=== PATIENT | male | born 1955 | race Caucasian/White ===

== ENCOUNTER 2018-05-01 08:20 | Observation (INO) | payer OTHER ==
[~2018-05-01] VITALS: Ht 167.6 cm; Wt 103.9 kg
--- NOTE | ~2018-05-01 | P ---
[facility] [place] [place] [address] PROCEDURE REPORT Name: MARIA T GOTTI Room #: 216-P [facility] M.RSera#: [id number] Admission: 05/01/18 Attend Phys: Monroe Khan MD Discharge: Date of : 51 Report #: [id number] THIS REPORT FOR: //name// CC: Monroe Phipps PROCEDURE: Dual-chamber ICD implantation. PREOPERATIVE DIAGNOSIS: Ischemic cardiomyopathy. POSTOPERATIVE DIAGNOSIS: Ischemic cardiomyopathy. HISTORY OF PRESENT ILLNESS: The patient is a 63-year-old male with a history of coronary artery disease, status post GA and history of an ischemic cardiomyopathy, EF of less than 35%, who has been on optimal medical therapy. He has [place] [employer] functional class 2-3 heart failure symptoms and is here for ICD for primary prevention of sudden cardiac . He is currently in atrial fibrillation, but will undergo a cardioversion in the near future and therefore an atrial lead was placed as well to monitor for AFib. ANESTHESIA: The patient underwent initial MAC anesthesia, but prior to initiation of the procedure due to some issues with sleep apnea and low saturations he was converted to a general. DESCRIPTION OF PROCEDURE: The patient underwent informed consent. We discussed the details of the procedure including the risks, which include but not limited to bleeding, infection, vascular damage, cardiac perforation and pneumothorax. He understood these risks and is willing to proceed. As such, he was brought to the EP laboratory in a fasting and unsedated state, prepped and draped in the sterile fashion, underwent venogram showing patency of the left axillary vein and received IV antibiotics prior to initiation of the procedure. Prior to me starting, the patient's sats were somewhat low, so the anesthesiologist converted him to general. Once his oxygenation improved, I started the procedure. I injected lidocaine below the level of the left clavicle, incision was made, a pocket was created over the prepectoral fascia. As we were making the pocket, he did become somewhat bradycardic and hypotensive, which responded to some vasopressors. Next, I obtained access to the left axillary vein x 2 placing sheaths using the modified Seldinger technique. Next, the lead was positioned in the right ventricular apex and another lead was positioned in the right atrial appendage both with adequate lead characteristics. The leads were sutured to the prepectoral fascia. Of note, the patient did have quite a large heart, but the 58 cm lead appeared to be sufficient. The leads were sutured to the prepectoral fascia and connected to the device. The pocket was irrigated with vancomycin. Next, the pocket was closed with three layers, 2-0 for the deep layer, 3-0 for the middle layer and 4-0 for the subcuticular. Surgical [facility] [address] [place] [address] PROCEDURE REPORT Name: MARIA T GOTTI Room #: 216-P [facility] M.R.#: [id number] Admission: 05/01/18 Attend Phys: Monroe Khan MD Discharge: Date of : 51 Report #: [id number] glue was placed to the outer skin layer. The patient awoke neurologically and hemodynamically intact with no complications and no significant bleeding. Implanted device was a [employer] model #[id number], serial #[id number]. Atrial lead was a [employer] model #BKQ1325O, 52 cm, serial #[id number]. This lead demonstrated a P-wave of 0.4 millivolts and pacing impedance of 400 ohms. A threshold could not be obtained due to the atrial fibrillation. The RV lead was a [employer] model #7120Q, 58 cm, serial #[id number] with R-wave of 6.2 millivolts, pacing impedance of 400 ohms with a pacing threshold of 0.75 volts at 0.5 milliseconds. The device was programmed to DDD 60-130 mode. The VT zone was set from 180-220 beats per minute with three rounds of burst followed by three rounds of ramp followed by max output shocks. The VF zone was set at greater than 220 beats per minute with ATP while charging followed by max output shocks. CONCLUSIONS: 1. Successful ICD implantation. 2. Satisfactory atrial and ventricular lead characteristics. By: [id number] Monroe Khan MD /nt
[~2018-05-01 08:20] MED LIST: ALLERGY10 M1 PO; AMARYL4 MG PO; AMLODIPINE BESY10 MG PO; ASPIR 8181 MG PO; ATORVASTATIN CA40 MG PO; AZITHROMYCIN 2250 MG PO; BRILINTA90 MG PO; CEFUROXIME500 MG PO; COREG CR40 MG PO; COZAAR100 MG PO; DILTIAZEM 24HR180 M2; DUONEB 2.5-0.5 M3 ML INH; EFFIENT10 MG PO; ENTRESTO 97 MG1 EACH; FLONASE 0.05%50 MCG NASAL; HYTRIN 5 M5 MG/1 CAP PO; IMDUR 30 MG TAB30 M1 PO; ISOSORBIDE DINI30 MG PO; KLOR-CON 1010 MEQ PO; KLOR-CON 88 ME1 PO; LASIX 40 MG TAB40 M2 PO; LIALDA1.2 GM PO; MERCAPTOPURINE50 MG PO; METFORMIN HCL500 MG PO; MUCINEX TA600 MG/TA2 PO; NASONEX17 GM NASAL; NEBULIZER MISCELL; NITROGLYCERIN0.4 MG SUBLING; OMEPRAZOLE20 M2 PO; PLAVIX 75 MG TA75 M1 PO; PREDNISONE 20 M20 MG PO; PREDNISONE 5 MG5 M1 PO; ZPAK PO
[2018-05-01] MEDS ORDERED: ISOSORBIDE DINI30 MG PO (08:45)
[2018-05-01] MEDS ORDERED: ENTRESTO 97 MG1 EACH PO (08:47)
[2018-05-01] MEDS ORDERED: NITROGLYCERIN0.4 MG SUBLING (08:55)
[2018-05-01] MEDS ORDERED: POTASSIUM20 PO (08:56)
[2018-05-01] MEDS ORDERED: DEMADEX20 MG PO (08:57)
[2018-05-01] MEDS ORDERED: IRON325 PO (08:58)
[2018-05-01] MEDS ORDERED: D3 DOTS2000 UNIT PO (08:59)
[2018-05-01 09:01] LABS: ABSOLUTE NEUTROPHILS 4.5 thou/uL (1.4-8.2); BASOPHILS 1.5 % (0.0-2.0); EOSINOPHILS 4.2 % (0.0-3.0); HEMATOCRIT 32.5 % (42.0-52.0); HEMOGLOBIN 10.7 gm/dL (14.0-18.0); LYMPHOCYTES 10.3 % (24.0-44.0); MCH 26.4 pg (26.0-34.0); MONOCYTES 6.9 % (1.0-8.0); PLATELET COUNT 291 thou/uL (150-400); POLYS 77.1 % (36.0-66.0); RBC 4.06 mil/uL (4.50-6.00); WBC 5.9 thou/uL (4.0-11.0)
[2018-05-01 09:12] VITALS: BP 132/83
[2018-05-01 09:12] LABS: CALCIUM 8.8 mg/dL (8.5-10.1); CREATININE 1.8 mg/dL (0.7-1.3); POTASSIUM 3.2 mmol/L (3.5-5.1)
[2018-05-01 09:18] LABS: TOTAL BILIRUBIN 0.7 mg/dL (<0.1-1.0)
[2018-05-01 09:23] LABS: APTT 30.8 Seconds (24.5-32.8); INR 1.2
[2018-05-01 19:45] VITALS: BP 135/81
[2018-05-02 03:04] VITALS: BP 138/77
[2018-05-02 07:34] LABS: CALCIUM 8.7 mg/dL (8.5-10.1); CREATININE 1.7 mg/dL (0.7-1.3); POTASSIUM 3.5 mmol/L (3.5-5.1)
[2018-05-02 07:50] VITALS: BP 137/96
[2018-05-02 10:05] LABS: URINE BILIRUBIN NEGATIVE (Negative); URINE BLOOD NEGATIVE (Negative); URINE CLARITY CLEAR; URINE COLOR YELLOW; URINE GLUCOSE-RANDOM* NEGATIVE (Negative); URINE KETONES NEGATIVE (Negative); URINE LEUKOCYTES NEGATIVE (Negative); URINE NITRITE NEGATIVE (Negative); URINE PROTEIN (DIPSTICK) 1+ (Negative); URINE UROBILINOGEN 0.2 E.U./dl (0.2-1.0)
[2018-05-02 10:22] LABS: HYALINE CASTS 0-3 Few /LPF (None Seen); SQUAMOUS 0-3 Few /LPF (0-3); URINE RBC 3-10 Few /HPF (0-2); URINE WBC 0-5 Rare /HPF (0-5)
[2018-05-02 10:23] LABS: BACTERIA 1-9 Few /HPF (None Seen); CRYSTALS None Seen /LPF (None Seen)
[2018-05-02 11:18] VITALS: BP 137/96
[2018-05-02 11:55] VITALS: BP 129/84
== END 2018-05-02 13:00 | disposition home or self-care (01) ==
LOC: CATH 08:20 → 2N 15:19 → ENTRNSPT 05-02 12:44 → EDTRNSPTSTS 05-02 12:54 → 2N 05-02 13:00
PROVIDERS: Internal Medicine Cardiovascular Disease
DX: I25.5 Ischemic cardiomyopathy (principal); I48.1 Persistent atrial fibrillation; I25.10 Atherosclerotic heart disease of native coronary artery without angina pectoris; I11.0 Hypertensive heart disease with heart failure; I50.22 Chronic systolic (congestive) heart failure; G47.33 Obstructive sleep apnea (adult) (pediatric); E78.5 Hyperlipidemia, unspecified; E11.9 Type 2 diabetes mellitus without complications; I25.2 Old myocardial infarction; Z95.5 Presence of coronary angioplasty implant and graft; Z82.49 Family history of ischemic heart disease and other diseases of the circulatory system

== ENCOUNTER → 2018-07-05 | Outpatient (CLI) | payer OTHER ==
[~2018-07-05] VITALS: Ht 167.6 cm; Wt 103.0 kg
[~2018-07-05] MED LIST changes: +D3 DOTS2000 UNIT PO; +DEMADEX20 MG PO; +ELIQUIS2.5 MG PO; +ENTRESTO 97 MG1 EACH PO; +IRON325 PO; +PACERONE 200 M200 M1 PO; +POTASSIUM20 PO
[2018-07-05 11:13] VITALS: BP 135/86
[2018-07-05 11:24] LABS: ABSOLUTE NEUTROPHILS 4.5 thou/uL (1.4-8.2); BASOPHILS 1.2 % (0.0-2.0); HEMATOCRIT 33.5 % (42.0-52.0); LYMPHOCYTES 10.3 % (24.0-44.0); MCH 26.6 pg (26.0-34.0); MCHC 32.8 g/dL (28.0-37.0); MCV 81.2 fL (80.0-100.0); PLATELET COUNT 227 thou/uL (150-400); POLYS 77.5 % (36.0-66.0); RBC 4.12 mil/uL (4.50-6.00); RDW 21.6 % (10.5-14.5); WBC 5.8 thou/uL (4.0-11.0)
[2018-07-05 11:35] LABS: CALCIUM 9.1 mg/dL (8.5-10.1); CREATININE 1.6 mg/dL (0.7-1.3); POTASSIUM 3.2 mmol/L (3.5-5.1)
[2018-07-05 11:41] LABS: ALBUMIN 3.3 g/dL (3.4-5.0); TOTAL BILIRUBIN 1.6 mg/dL (<0.1-1.0); TOTAL PROTEIN 7.3 g/dL (6.4-8.2)
[2018-07-05 11:46] LABS: APTT 33.6 Seconds (24.5-32.8); INR 1.4; PROTIME 13.3 Seconds (9.3-11.4)
== END | disposition home or self-care (01) ==
LOC: CATH 08:07
PROVIDERS: Internal Medicine Cardiovascular Disease
DX: I48.91 Unspecified atrial fibrillation (principal); I11.0 Hypertensive heart disease with heart failure; I50.9 Heart failure, unspecified; I25.2 Old myocardial infarction; K21.9 Gastro-esophageal reflux disease without esophagitis; E78.5 Hyperlipidemia, unspecified; M10.9 Gout, unspecified; E66.09 Other obesity due to excess calories; Z98.890 Other specified postprocedural states; Z82.49 Family history of ischemic heart disease and other diseases of the circulatory system; Z79.01 Long term (current) use of anticoagulants; Z95.5 Presence of coronary angioplasty implant and graft; Z79.899 Other long term (current) drug therapy; Z88.8 Allergy status to other drugs, medicaments and biological substances
CPT/HCPCS: 62110; 62900

== ENCOUNTER → 2018-08-23 | Outpatient (CLI) | payer OTHER ==
[~2018-08-23] VITALS: Ht 167.6 cm; Wt 104.3 kg
--- NOTE | ~2018-08-23 | P ---
[facility] [place] [address] [place] [address] PROCEDURE REPORT Name: MARIA T GOTTI Room #: REG KIKA Chloe#: [id number] Admission: 08/23/18 Attend Phys: Monroe Khan MD Discharge: Date of : 51 Report #: [id number] THIS REPORT FOR: //name// CC: Monroe Dudley DATE OF SERVICE: 08/23/2018 PROCEDURE: Cardioversion. PREOPERATIVE DIAGNOSIS: Atrial fibrillation. POSTOPERATIVE DIAGNOSIS: Atrial fibrillation. DESCRIPTION OF PROCEDURE: The patient underwent informed consent. He was then sedated by the Anesthesiology service. Once sedated, he underwent a synchronized 200-joule cardioversion with cheondoism of sinus rhythm. There were no procedural complications. CONCLUSIONS: Successful direct current cardioversion with cheondoism of sinus rhythm. <ELECTRONICALLY SIGNED> By: Monroe Khan MD 08/26/18 1145 [id number] [id number] Monroe Khan MD /nt
--- NOTE | ~2018-08-23 | EKG ---
[address] [address] ELECTROCARDIOGRAM REPORT Name: MARIA T GOTTI [id number] Admission: 08/23/18 Attend Phys: Monroe Khan MD Discharge: Date of : 51 Report #: [id number] THIS REPORT FOR: //name// [facility] [place] Test Date: 2018-08-23 Test Time: 13:13:44 Pat Name: MARIA T GOTTI Department: Room: Gender: [place]ake Drier: Jyoti LAGUNA : 1955 Requested By: Monroe Khan Order Number: [id number] MD: Monroe Khan Measurements Intervals [place] Rate: 64 P: 38 MO: 246 QRS: -10 QRSD: 127 T: 58 QT: 468 QTc: 483 Interpretive Statements Sinus rhythm Prolonged MO interval Nonspecific intraventricular conduction delay No previous ECG available for comparison Electronically Signed On 08-23-2018 13:25:44 [employer] by Monroe Khan [email or web address] <ELECTRONICALLY SIGNED> By: Monroe Khan MD 08/23/18 1325 1313 1313 Monroe Khan MD /ROCKY
[2018-08-23 11:25] VITALS: BP 151/75
[2018-08-23 11:50] LABS: HEMATOCRIT 32.2 % (42.0-52.0); HEMOGLOBIN 10.1 gm/dL (14.0-18.0); MCH 25.9 pg (26.0-34.0); MCHC 31.5 g/dL (28.0-37.0); MCV 82.4 fL (80.0-100.0); RBC 3.91 mil/uL (4.50-6.00); RDW 20.9 % (10.5-14.5); WBC 5.8 thou/uL (4.0-11.0)
[2018-08-23 11:58] LABS: CALCIUM 8.9 mg/dL (8.5-10.1); CREATININE 2.2 mg/dL (0.7-1.3); POTASSIUM 3.3 mmol/L (3.5-5.1)
[2018-08-23 12:04] LABS: ALBUMIN 3.3 g/dL (3.4-5.0); APTT 35.4 Seconds (24.5-32.8); INR 1.3; PROTIME 13.4 Seconds (9.3-11.4); TOTAL BILIRUBIN 1.1 mg/dL (<0.1-1.0); TOTAL PROTEIN 6.9 g/dL (6.4-8.2)
== END | disposition home or self-care (01) ==
LOC: CATH 07:50
PROVIDERS: Internal Medicine Cardiovascular Disease
DX: I48.91 Unspecified atrial fibrillation (principal); I11.0 Hypertensive heart disease with heart failure; I50.9 Heart failure, unspecified; E11.9 Type 2 diabetes mellitus without complications; E78.5 Hyperlipidemia, unspecified; K21.9 Gastro-esophageal reflux disease without esophagitis; I25.2 Old myocardial infarction; E66.09 Other obesity due to excess calories; Z98.890 Other specified postprocedural states; Z95.5 Presence of coronary angioplasty implant and graft; Z79.01 Long term (current) use of anticoagulants; Z82.49 Family history of ischemic heart disease and other diseases of the circulatory system; Z79.4 Long term (current) use of insulin; Z88.8 Allergy status to other drugs, medicaments and biological substances; Z79.899 Other long term (current) drug therapy
CPT/HCPCS: 62110; 62900

== ENCOUNTER → 2020-02-11 | Outpatient (CLI) | payer OTHER ==
[~2020-02-11] MED LIST changes: +ALLOPURINOL 10100 M1 PO; +ASMANEX110 MCG NASAL; +BUMETANIDE 1 MG1 M1 PO; +BUMEX2 MG PO; +CETIRIZINE HCL5 MG PO; +COREG6.25 MG PO; -DILTIAZEM 24HR180 M2; +DILTIAZEM 24HR180 M2 PO; +ELIQUIS5 MG PO; +ENTRESTO 24 MG1 EACH PO; +ENTRESTO 49 MG1 EACH PO; +FLEXERIL PO; +FOLIC ACID1 MG PO; +HUMALOG100 UNIT/1 SUBQ; +HYDRALAZINE 2525 MG PO; -HYTRIN 5 M5 MG/1 CAP PO; +KEFLEX500 M1 PO; +LIPITOR80 MG PO; +MEDROL4 MG PO; +METOLAZONE 2.52.5 M1 PO; +NOXIFOL-D32500 UNIT PO; +OMEPRAZOLE 20 M20 M1 PO; +PREDNISONE 10 M10 MG PO; +PROMETHAZINE-C473 ML PO; +PROSCAR 5MG TABL5 MG PO; +TERAZOSIN HCL5 MG PO; +TRAMADOL 50 MG50 MG PO; +VITAMINC500 PO
== END ==
LOC: SJCVC 13:07
PROVIDERS: ATTEND Internal Medicine Cardiovascular Disease
DX: R94.31 Abnormal electrocardiogram [ECG] [EKG] (principal); I49.01 Ventricular fibrillation; I25.5 Ischemic cardiomyopathy; I25.10 Atherosclerotic heart disease of native coronary artery without angina pectoris; E11.22 Type 2 diabetes mellitus with diabetic chronic kidney disease; I12.9 Hypertensive chronic kidney disease with stage 1 through stage 4 chronic kidney disease, or unspecified chronic kidney disease; N18.4 Chronic kidney disease, stage 4 (severe); E78.5 Hyperlipidemia, unspecified; G47.33 Obstructive sleep apnea (adult) (pediatric); Z95.810 Presence of automatic (implantable) cardiac defibrillator; Z79.899 Other long term (current) drug therapy